=== PATIENT | female | born 1990 | race Caucasian/White ===

== ENCOUNTER → 2016-08-14 | Outpatient (REF) | payer BC ==
[~2016-08-14] MED LIST: ACET50TA PO; IBUP80TA PO
[2016-08-14 11:01] LABS: MEAN CORPUSCULAR HEMOGLOBIN 30.3 pg (27.0-33.0); MEAN CORPUSCULAR HGB CONC 34.6 g/dl (32.0-36.5); MEAN CORPUSCULAR VOLUME 87.7 fl (80.0-96.0); RED CELL DISTRIBUTION WIDTH 12.2 % (11.5-14.5); WHITE BLOOD COUNT 6.1 K/mm3 (4.0-10.0)
[2016-08-14 11:37] LABS: ALBUMIN 4.3 GM/DL (3.2-5.2); ALBUMIN/GLOBULIN RATIO 1.34 (1.00-1.93); ALKALINE PHOSPHATASE 65 U/L (45-117); ALT/SGPT 32 U/L (12-78); ANION GAP 7 MEQ/L (8-16); AST/SGOT 21 U/L (15-37); BILIRUBIN,TOTAL 0.4 MG/DL (0.2-1.0); BLOOD UREA NITROGEN 11 MG/DL (7-18); CARBON DIOXIDE LEVEL 30 MEQ/L (21-32); CHLORIDE LEVEL 105 MEQ/L (98-107); CREATININE FOR GFR 0.79 MG/DL (0.55-1.02); FERRITIN 53 NG/ML (8-252); GLOMERULAR FILTRATION RATE > 60.0 (>60); GLUCOSE, FASTING 83 MG/DL (70-105); POTASSIUM SERUM 4.4 MEQ/L (3.5-5.1); SODIUM LEVEL 142 MEQ/L (136-145); TOTAL PROTEIN 7.5 GM/DL (6.4-8.2)
== END ==
LOC: M SFHCLERA 09:30
PROVIDERS: ATTEND Family Medicine
DX: L65.9 Nonscarring hair loss, unspecified (principal); G44.209 Tension-type headache, unspecified, not intractable; E55.9 Vitamin D deficiency, unspecified

== ENCOUNTER → 2017-01-30 | Outpatient (REF) | payer BC | LOC: M LAB REF 16:39 | PROVIDERS: ATTEND Obstetrics & Gynecology | DX: N39.0 Urinary tract infection, site not specified (principal) ==

== ENCOUNTER → 2019-01-13 | Outpatient (REF) | payer BC ==
[~2019-01-13] MED LIST changes: -ACET50TA PO; +MAPA500T17 PO
[2019-01-13 18:48] LABS: BASO % 0.3 % (0.0-1.0); EOS # 0.1 10^3/uL (0.0-0.50); EOS % 1.3 % (0.0-3.0); HEMOGLOBIN 15.2 g/dl (12.0-15.5); LYMPH # 2.7 10^3/uL (1.5-6.5); LYMPH % 35.3 % (24.0-44.0); MEAN CORPUSCULAR HGB CONC 34.5 g/dl (32.0-36.5); MONO # 0.5 10^3/uL (0.0-0.8); MONO % 5.8 % (0.0-5.0); NEUTROPHILS # 4.4 10^3/uL (1.8-7.7); NEUTROPHILS % 57.2 % (36.0-66.0); PLATELET COUNT, AUTOMATED 309 10^3/uL (150-450); RED BLOOD COUNT 5.06 10^6/uL (4.00-5.40); WHITE BLOOD COUNT 7.7 10^3/uL (4.0-10.0)
[2019-01-13 18:53] LABS: ALBUMIN 4.6 GM/DL (3.2-5.2); ALT/SGPT 43 U/L (12-78); BILIRUBIN,TOTAL 0.6 MG/DL (0.2-1.0); BLOOD UREA NITROGEN 12 MG/DL (7-18); CALCIUM LEVEL 9.7 MG/DL (8.5-10.1); CARBON DIOXIDE LEVEL 28 MEQ/L (21-32); CHLORIDE LEVEL 103 MEQ/L (98-107); CHOLESTEROL LEVEL 204 MG/DL (<200); CHOLESTEROL RISK RATIO 3.187 (<5); CREATININE FOR GFR 0.89 MG/DL (0.55-1.30); GLOMERULAR FILTRATION RATE > 60.0 (>60); GLUCOSE, FASTING 75 MG/DL (70-100); HDL CHOLESTEROL 64 MG/DL (>40); LDL CHOLESTEROL 115 MG/DL (<100); NON-HDL-C 140 MG/DL; POTASSIUM SERUM 4.2 MEQ/L (3.5-5.1); SODIUM LEVEL 140 MEQ/L (136-145); TOTAL PROTEIN 8.2 GM/DL (6.4-8.2); TRIGLYCERIDES LEVEL 124 MG/DL (<150)
[2019-01-13 18:57] LABS: TOTAL 25(OH) VITAMIN D 36.1 NG/ML (30.0-100.0)
[2019-01-13 19:04] LABS: AMORPHOUS SEDIMENT LARGE (NEGATIVE); APPEARANCE, URINE TURBID (CLEAR); BACTERIA, URINE AUTO NEGATIVE (NEGATIVE); BILIRUBIN, URINE AUTO NEGATIVE (NEGATIVE); BLOOD, URINE BLOOD NEGATIVE (NEGATIVE); COLOR, URINE RED (YELLOW); GLUCOSE, URINE (UA) AUTO NEGATIVE (NEGATIVE); KETONE, URINE AUTO NEGATIVE (NEGATIVE); LEUKOCYTE ESTERASE, URINE AUTO 1+ (NEGATIVE); NITRITE, URINE AUTO NEGATIVE (NEGATIVE); PROTEIN, URINE AUTO NEGATIVE (NEGATIVE); RBC, URINE AUTO 0 /HPF (0-3); SPECIFIC GRAVITY URINE AUTO 1.018 (1.002-1.035); SQUAMOUS EPITHELIAL CELL UR AU 5 /HPF (0-6); UROBILINOGEN, URINE AUTO 0.2 mg/dL (0.0-2.0); WBC, URINE AUTO 4 /HPF (0-3)
[2019-01-13 19:35] LABS: HEMOGLOBIN A1c 5.5 %
== END ==
LOC: M LAB REF 16:48
PROVIDERS: ATTEND Nurse Practitioner Family
DX: Z13.9 Encounter for screening, unspecified (principal); L65.9 Nonscarring hair loss, unspecified

== ENCOUNTER → 2020-08-16 | Outpatient (REF) | payer BC ==
[2020-08-16 14:44] LABS: FREE T4 1.17 NG/DL (0.76-1.46); THYROID STIMULATING HORMONE 1.4 uIU/ML (0.358-3.740)
[2020-08-16 15:41] LABS: FOLLICLE STIMULATING HORMONE 9.9 mIU/mL; LUTEINIZING HORMONE 13.1 mIU/mL; PROGESTERONE 0.52 NG/ML; PROLACTIN 11.7 NG/ML
== END ==
LOC: M PLALAB 09:37
PROVIDERS: ATTEND Specialist
DX: N92.6 Irregular menstruation, unspecified (principal)

== ENCOUNTER → 2020-10-05 | Outpatient (REF) | payer BC | LOC: M PLALAB 09:03 | PROVIDERS: ATTEND Advanced Practice Midwife | DX: Z3A.00 Weeks of gestation of pregnancy not specified (principal) ==

== ENCOUNTER → 2020-10-07 | Outpatient (REF) | payer BC | LOC: M PLALAB 13:31 | PROVIDERS: ATTEND Advanced Practice Midwife | DX: Z34.91 Encounter for supervision of normal pregnancy, unspecified, first trimester (principal); Z3A.01 Less than 8 weeks gestation of pregnancy ==

== ENCOUNTER → 2020-10-20 | Outpatient (REF) | payer BC ==
[2020-10-20 14:15] LABS: HEMATOCRIT 39.1 % (36.0-47.0); MEAN CORPUSCULAR HEMOGLOBIN 29.7 pg (27.0-33.0); MEAN CORPUSCULAR HGB CONC 33.2 g/dl (32.0-36.5); MEAN CORPUSCULAR VOLUME 89.3 fl (80.0-96.0); PLATELET COUNT, AUTOMATED 272 10^3/uL (150-450); RED BLOOD COUNT 4.38 10^6/uL (4.00-5.40); WHITE BLOOD COUNT 9.7 10^3/uL (4.0-10.0)
[2020-10-20 15:16] LABS: CHLAMYDIA DNA AMPLIFICATION NEGATIVE (NEGATIVE); GC DNA AMPLIFICATION NEGATIVE (NEGATIVE)
[2020-10-20 16:31] LABS: HEPATITIS C VIRUS ABY INDEX < 0.0 INDEX (<0.8); HIV 1&2 SCREEN CENTAUR NEGATIVE (NEGATIVE)
== END ==
LOC: M PLALAB 10:09
PROVIDERS: ATTEND Obstetrics & Gynecology
DX: Z34.91 Encounter for supervision of normal pregnancy, unspecified, first trimester (principal)

== ENCOUNTER → 2020-11-09 | Outpatient (CLI) | payer BC | LOC: M PLALAB 11:01 | PROVIDERS: ATTEND Advanced Practice Midwife | DX: Z34.81 Encounter for supervision of other normal pregnancy, first trimester (principal) ==

== ENCOUNTER → 2020-12-27 | Outpatient (CLI) | payer BC ==
--- NOTE | 2020-12-27 13:50 | REP ---
INDICATION: ANATOMY. COMPARISON: None. TECHNIQUE: Transabdominal obstetric sonography. FINDINGS: Scanning through the gravid uterus demonstrates a viable single intrauterine gestation in transverse lie. motion is observed and heart rate is recorded at 155 beats per minute. A anterior placenta is seen, grade 0, without evidence of placenta previa. Closed cervical length is not measured.. No extrauterine abnormality is observed. Amniotic fluid is subjectively normal. The following anatomic structures are identified felt to be unremarkable: cranium, choroid plexus and ventricles, face and profile and orbits, diaphragm, left-sided stomach, abdominal wall cord insertion, urinary bladder, upper and lower extremities, 3 vessel cord. The following these are less than optimally seen due to position: cerebellum, nose and lips, lungs, four-chamber heart and left and right ventricular outflow tract views, spine.. Biometry chart: BPD 4.0 cm, 18 weeks 1 day Head circumference 14.7 cm, 17 weeks 6 days Abdominal circumference 12.5 cm, 18 weeks 1 day Femur length 2.6 cm, 17 weeks 5 days Humeral length 2.4 cm, 17 weeks 2 days HC AC ratio normal 1.18 Cephalic index normal 0.76 Estimated weight 217 g, 0 lb 7 oz, 67th percentile for 17 weeks 4 days IMPRESSION: Viable single intrauterine gestation at 17 weeks 6 days by today's composite sonographic criteria. JOSE GUADALUPE by today's sonography 31 May 2021. No complication identified. Expected gestational age estimate by a LMP JOSE GUADALUPE 02 June 2021 is 17 weeks 4 days. <Electronically signed by Lexa Bonilla > 12/27/20 [id number]
== END ==
LOC: M RAD 12:45
PROVIDERS: ATTEND Advanced Practice Midwife
DX: Z36.9 Encounter for antenatal screening, unspecified (principal); Z3A.17 17 weeks gestation of pregnancy

== ENCOUNTER → 2021-01-27 | Outpatient (CLI) | payer BC ==
--- NOTE | 2021-01-27 15:28 | REP ---
INDICATION: F/U ANATOMY. COMPARISON: 12/27/2020. TECHNIQUE: Real-time sonographic evaluation of the gravid uterus performed. FINDINGS: Estimated gestational age is22 weeks 0 days, EDC 06/02/2021. Today's measurements indicate appropriate growth. Presentation: Cephalic Placenta anterior, grade 1, without evidence of placenta previa. heart rate is recorded at 138 beats per minute. Amniotic fluid is subjectively normal. Closed cervical length is measured at 3.6 cm. Biometry chart: BPD: 56 mm, 23 weeks 0 days, 76th percentile. HC: 208 mm, 22 weeks 6 days, 75th percentile AC: 179 mm, 22 weeks 6 days, 67th percentile Femur length: 38 mm, 22 weeks 0 days, 50th percentile HC to AC ratio: 1.16, normal range 1.04-1.23. Estimated weight: 510g, 70th percentile. anatomy: Cranium: Grossly normal Lateral Ventricles/Choroid Plexus: Grossly normal Posterior Fossa/Cerebellum: Grossly normal Nose/lips/profile: Grossly normal Four chamber heart: Grossly normal Right ventricular outflow tract: Grossly normal Left ventricular outflow tract: Grossly normal Left-sided stomach: Grossly normal Kidneys: Grossly normal Bladder: Grossly normal Cord Insertion: Grossly normal 3 vessel cord: Grossly normal Spine: Grossly normal IMPRESSION: Viable single intrauterine gestation as above. <Electronically signed by Magnus Thompson > 01/27/21 [id number]
== END ==
LOC: M WHC 13:43
PROVIDERS: ATTEND Specialist
DX: Z34.82 Encounter for supervision of other normal pregnancy, second trimester (principal); Z3A.22 22 weeks gestation of pregnancy

== ENCOUNTER → 2021-01-31 | Outpatient (REF) | payer BC | LOC: M PLALAB 11:42 | PROVIDERS: ATTEND Obstetrics & Gynecology | DX: Z36.89 Encounter for other specified antenatal screening (principal); Z3A.22 22 weeks gestation of pregnancy ==

== ENCOUNTER → 2021-03-02 | Outpatient (CLI) | payer BC ==
[2021-03-02 14:12] LABS: HEMATOCRIT 34.9 % (36.0-47.0); HEMOGLOBIN 11.8 g/dl (12.0-15.5); MEAN CORPUSCULAR HEMOGLOBIN 30.9 pg (27.0-33.0); MEAN CORPUSCULAR HGB CONC 33.8 g/dl (32.0-36.5); MEAN CORPUSCULAR VOLUME 91.4 fl (80.0-96.0); PLATELET COUNT, AUTOMATED 259 10^3/uL (150-450); RED BLOOD COUNT 3.82 10^6/uL (4.00-5.40); WHITE BLOOD COUNT 9.7 10^3/uL (4.0-10.0)
== END ==
LOC: M PLALAB 09:38
PROVIDERS: ATTEND Obstetrics & Gynecology
DX: Z36.89 Encounter for other specified antenatal screening (principal); Z3A.22 22 weeks gestation of pregnancy

== ENCOUNTER → 2021-03-20 | Outpatient (CLI) | payer BC | LOC: M LABSMTC 09:25 | PROVIDERS: ATTEND Family Medicine | DX: Z20.822 Contact with and (suspected) exposure to COVID-19 (principal) | CPT/HCPCS: C9803; U0003 ==

== ENCOUNTER 2021-04-02 00:43 | Emergency (ER) | payer BC ==
[~2021-04-02] VITALS: Ht 157.5 cm; Wt 77.1 kg
[2021-04-02 02:37] LABS: BASO % 0.5 % (0.0-1.0); HEMATOCRIT 31.7 % (36.0-47.0); HEMOGLOBIN 11.2 g/dl (12.0-15.5); LYMPH # 0.7 10^3/uL (1.5-5.0); LYMPH % 11.2 % (24.0-44.0); MEAN CORPUSCULAR HEMOGLOBIN 30.8 pg (27.0-33.0); MEAN CORPUSCULAR HGB CONC 35.3 g/dl (32.0-36.5); MEAN CORPUSCULAR VOLUME 87.1 fl (80.0-96.0); MONO # 0.4 10^3/uL (0.0-0.8); MONO % 6.5 % (2.0-8.0); NEUTROPHILS % 79.6 % (36.0-66.0); PLATELET COUNT, AUTOMATED 209 10^3/uL (150-450); RED BLOOD COUNT 3.64 10^6/uL (4.00-5.40); WHITE BLOOD COUNT 6.3 10^3/uL (4.0-10.0)
[2021-04-02 03:11] LABS: BLOOD UREA NITROGEN 5 MG/DL (7-18); CALCIUM LEVEL 8.5 MG/DL (8.5-10.1); CARBON DIOXIDE LEVEL 26 MEQ/L (21-32); CHLORIDE LEVEL 105 MEQ/L (98-107); CK-MB VALUE MASS < 1.0 NG/ML (<3.6); CPK CREATINE PHOSPHOKINASE 37 U/L (26-192); GLOMERULAR FILTRATION RATE > 60.0 (>60); GLUCOSE, FASTING 127 MG/DL (70-100); POTASSIUM SERUM 4.1 MEQ/L (3.5-5.1); SODIUM LEVEL 137 MEQ/L (136-145); TROPONIN I < 0.02 NG/ML (< 0.10)
[2021-04-02] MEDS ORDERED: ACETAMINOPHEN 500 MG TAB PO ONE (04:20)
--- NOTE | 2021-04-02 08:14 | REPVR ---
PROCEDURE INFORMATION: Exam: XR Chest Exam date and time: 04/02/2021 7:14 AM Age: 30 years old Clinical indication: Other: Chest pain and tightness TECHNIQUE: Imaging protocol: XR of the chest. Views: 2 views. COMPARISON: No relevant prior studies available. FINDINGS: Lungs: Mild interstitial prominence without significant airspace disease. Pleural spaces: No pleural effusion. Heart/Mediastinum: No cardiomegaly. Bones/joints: Unremarkable. IMPRESSION: No acute airspace or pleural disease. Electronically signed by: Scott Bunch On 04/02/2021 08:14:25 AM
[2021-04-02 08:15] VITALS: BP 113/60
[2021-04-02] MEDS ORDERED: PRENTAB9 PO (09:04)
--- NOTE | 2021-04-03 05:50 | ECGEPIP ---
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
== END 2021-04-02 08:34 | disposition admitted as inpatient to this hospital (09) ==
LOC: M ED 00:43
DX: O99.413 Diseases of the circulatory system complicating pregnancy, third trimester (principal); R06.02 Shortness of breath; R07.89 Other chest pain; Z3A.29 29 weeks gestation of pregnancy; Z91.040 Latex allergy status; Z79.899 Other long term (current) drug therapy

== ENCOUNTER 2021-04-02 08:40 | Outpatient (CLI) | payer BC ==
[~2021-04-02] VITALS: Ht 157.5 cm; Wt 76.1 kg
[2021-04-02 08:58] VITALS: BP 120/65
[2021-04-02] MEDS ORDERED: PRENTAB9 PO (09:04)
[2021-04-02] MEDS ORDERED: HOME MED LIST COMPLETE! XX SCH (09:10)
[2021-04-02 09:32] VITALS: BP 121/74
--- NOTE | 2021-04-02 10:06 | IPNPDOC ---
Text Note Date of Service The patient was seen on 04/02/21. NOTE Patient called the answering service over night w/ complaints of CP/SOB stating that she felt like somebody was sitting on her chest. She was having significant sternal pain which was exacerbated by movement. She denies any URI symptoms and denies fevers/chills. She has no history of asthma or panic attacks. She was seen in the ER and worked up for cardiac/pulmonary/infectious etiologies. Patient received tylenol in the ER which helped relieve her symptoms though she still feels tightness in her sternum. She no longer feels short of breath and is resting comfortably in triage. Once cleared by the ER, she was sent to L&D for NST prior to discharge from the hospital. She denies ctx/lof/vb. Reports +FM FHT 120 mod +Accel no Decel Reactive NST w/ 10x10 accels appropriate for this gestational age Vitals: See below A/P 30yo at 31w2d EGA who presented to the ER with chest pain and fausto rtness of breath. 1. ER evaluation of chest pain - VS wnl, Normal SpO2 sats - EKG normal sinus rhythm - CXR normal - cleared by the ER 2. - reassuring NST - reviewed PTL precautions - EHSAN Fang MD Apr 02, 2021 10:06
== END 2021-04-02 09:47 | disposition home or self-care (01) ==
LOC: M LDO 08:40
PROVIDERS: ATTEND Obstetrics & Gynecology
DX: O26.893 Other specified pregnancy related conditions, third trimester (principal); Z3A.31 31 weeks gestation of pregnancy; R06.02 Shortness of breath; R07.89 Other chest pain; Z91.040 Latex allergy status
CPT/HCPCS: 59025; G0378; G0463

== ENCOUNTER 2021-05-08 13:04 | Outpatient (CLI) | payer BC ==
[~2021-05-08] VITALS: Ht 157.5 cm; Wt 78.8 kg
[~2021-05-08 13:04] MED LIST changes: +PRENTAB9 PO
[2021-05-08 13:14] VITALS: BP 119/76
[2021-05-08] MEDS ORDERED: HOME MED LIST COMPLETE! XX SCH (13:15)
--- NOTE | 2021-05-08 15:08 | IPNPDOC ---
Text Note Date of Service The patient was seen on 05/08/21. NOTE S: Beryl is a 31 y.o. at 36.3 with an JOSE GUADALUPE of 06/02/2021 who presents to labor and delivery triage with + COVID-19, cough, and leaking of fluid when coughing. She and her entire family tested positive for COVID-19 last week. She is not taking any OTC medications to relieve her cough. She notes good movement. Reports occasional contractions when she was at home earlier but denies them currently. She denies vaginal bleeding. Medical: anxiety, tension headaches, vitamin D Deficiency Surgical: D & C Family: heart disease Social: neg for tobacco use, neg for etoh, illicit drug use O: VS: see below General: alert and oriented x 3 Respiratory: non-productive cough noted. No wheezing, crackles or rales noted on exam. RLL with diminished breath sounds. Cardiac: normal rate and rhythm, no murmur noted. Abdomen: soft and NTTP Pelvic: SSE reveals cervix that is closed, negative for fluid in the vagina, negative for fluid at os after valsalva. Negative for nitrazine test. Limited bedside ultrasound reveals LINO of 15.78, cephalic presentation. A: IUP at 36.3 weeks, +COVID-19 and non-productive cough P: GBS collected. Scripts sent for tesselon pearls and Mucinex to help with symptoms. Script sent for pulse ox and instructed to check it twice per day and if she is having any SOB or difficulty breathing. She is to call if she has consistent SpO2 less than or equal to 95%. Discussed monoclonal antibiodies if desired. Patient declined. Pt will have telemed visit with ANGEL Muhammad tomorrow 05/09/21 at 09:45 am with E clinic. ED consulted (kaden Montejo is a PA) on normal plan of care for Covid positive patients. Discharged to home with precautions. Reviewed access to care, kick count, and term labor signs, worsening Covid symptoms, and danger signs to report. VS,Fishbone, I+O VS, Fishbone, I+O Vital Signs Date Time Temp Pulse Resp B/P (MAP) Pulse Ox O2 Delivery O2 Flow Rate FiO2 05/08/21 13:14 98.4 133 18 119/76 (90) 97 Room Air DENA ALSTON CNM May 08, 2021 15:07
[2021-05-08] MEDS ORDERED: BENZ-18 PO (15:33)
[2021-05-08] MEDS ORDERED: MUCI600T31 PO (15:33)
[2021-05-08] MEDS ORDERED: BENZONATATE 100MG CAPSULE PO SCH (16:00)
[2021-05-08] MEDS ORDERED: guaiFENesin ER 600 MG TAB PO ONE (16:00)
== END 2021-05-08 16:20 | disposition home or self-care (01) ==
LOC: M LDO 13:04
PROVIDERS: ATTEND Advanced Practice Midwife
DX: O98.513 Other viral diseases complicating pregnancy, third trimester (principal); U07.1 COVID-19; O26.893 Other specified pregnancy related conditions, third trimester; Z3A.36 36 weeks gestation of pregnancy
CPT/HCPCS: 59025; 76815; 87081; G0378; G0463

== ENCOUNTER 2021-05-24 03:25 | Inpatient (IN) | payer BC ==
[2021-05-24] VITALS (9 sets, daily range): BP systolic 109–143; BP diastolic 65–88
[~2021-05-24] VITALS: Ht 157.5 cm; Wt 78.1 kg
[~2021-05-24 03:25] MED LIST changes: +BENZ-18 PO; +MUCI600T31 PO
[2021-05-24] MEDS ORDERED: ACET325C5 PO (04:35)
[2021-05-24] MEDS ORDERED: HOME MED LIST COMPLETE! XX SCH (04:40)
[2021-05-24 04:41] LABS: HEMATOCRIT 34.7 % (36.0-47.0); HEMOGLOBIN 11.9 g/dl (12.0-15.5); MEAN CORPUSCULAR HEMOGLOBIN 29.1 pg (27.0-33.0); MEAN CORPUSCULAR HGB CONC 34.3 g/dl (32.0-36.5); MEAN CORPUSCULAR VOLUME 84.8 fl (80.0-96.0); PLATELET COUNT, AUTOMATED 277 10^3/uL (150-450); RED BLOOD COUNT 4.09 10^6/uL (4.00-5.40); WHITE BLOOD COUNT 11.3 10^3/uL (4.0-10.0)
[2021-05-24] MEDS ORDERED: OXYTOCIN 30 UNITS IN 0.9% NaCl 500ML IV BAG (J2590) As Ordered ONE (05:56)
[2021-05-24] MEDS ORDERED: CARBOPROST TROMETHAMINE 250 MCG/ML AMP IM PRN (06:30)
[2021-05-24] MEDS ORDERED: OXYTOCIN DRIP 30 UNITS in IV 1 EA IV PRN (06:30)
[2021-05-24] MEDS ORDERED: TRANEXAMIC ACID INJection 1,000 MG in NS 100 ML IV PRN (06:30)
[2021-05-24] MEDS ORDERED: LIDOCAINE 1% MDV 20ML VIAL INFIL PRN (06:30)
[2021-05-24] MEDS ORDERED: LR 1,000 ML IV SCH ×2 (06:30→07:00)
[2021-05-24] MEDS ORDERED: METHYLERGONOVINE MALEATE 0.2 MG/ML VIAL (J2210) IM PRN (06:30)
[2021-05-24] MEDS ORDERED: DIBUCAINE 1% OINTMENT 30GM TOP PRN (07:00)
[2021-05-24] MEDS ORDERED: OXYTOCIN DRIP 30 UNITS in IV 1 EA IV SCH (07:00)
[2021-05-24] MEDS ORDERED: IBUPROFEN 600MG TAB PO PRN (07:00)
[2021-05-24] MEDS ORDERED: DOCUSATE SODIUM 100MG CAPSULE PO PRN (07:00)
[2021-05-24] MEDS ORDERED: MEASLES,MUMPS,RUBELLA VACCINE INJ (MMR-II) (90707) SC SCH (07:00)
[2021-05-24] MEDS ORDERED: IBUPROFEN 800 MG TAB PO PRN (07:00)
[2021-05-24] MEDS ORDERED: RHOGAM 300 MCG (1500 IU) INJ (J2790) IM SCH (07:00)
[2021-05-24] MEDS ORDERED: METHYLERGONOVINE MALEATE 0.2 MG TAB PO PRN (07:00)
[2021-05-24] MEDS ORDERED: ACETAMINOPHEN 500 MG TAB PO PRN (07:00)
[2021-05-24] MEDS ORDERED: ONDANSETRON 4MG/2ML VIAL IV PRN (07:00)
[2021-05-24] MEDS ORDERED: ACETAMINOPHEN TAB 650MG DOSE (2X325MG) PO PRN (07:00)
--- NOTE | 2021-05-24 07:24 | HPEPDOC ---
Obstetrical History & Physical General Date of Admission May 24, 2021 at 03:57 History of Present Illness 31-year-old G5, P2022 at 38+5 weeks gestation. Presents with frequent, painful uterine contractions over the past several hours. Denies any loss of fluid or vaginal bleeding. Reports regular movement. ROS: no MELENDEZ, cp, sob, fever/chills/nausea/vomiting. course: COVID + 05/01/21 No other complications. PMH: Chronic MELENDEZ's, anxiety, heart palpitations SH: D&C Meds: vitamin All: NKDA; latex DIRECTOR OF HOUSING: No STI or dysplasia OB: G1, D&C. G2, SAB. G3, Term , uncomplicated. G4, Term , uncomplicated . Sochx: No tobacco, alcohol or drug use FamHx: heart disease labs: Blood type B+, antibody screen negative, HepBsAg neg, HIV neg, rubella immune, Hep C antibody negative, RPR nonreactive, CT/GC neg, urine culture negative, 1 hour glucose challenge test 130, GBS negative imaging: no anomalies or placental abnormalities Past Medical History Allergies Coded Allergies: SEASONAL ALLERGIES (Verified Allergy, Intermediate, 04/02/21) stuffy nose,congestion,sore throat latex (Verified Allergy, Intermediate, 04/02/21) hives Medications Scheduled No.137/Iron/Folic Acd ( Vitamin Tablet) 1 Each Tablet, 1 TAB PO DAILY Miscellaneous Medications Acetaminophen (Tylenol) 325 Mg Capsule, 650 MG PO Physical Examination Physical Examination GENERAL: Alert and oriented times three. ABDOMEN: Gravid and non-tender to touch. FETUS: Is vertex (VTX) HEART RATE: Regular rate and rhythm. LUNGS: Clear to auscultation (CTA). EXTREMITIES: No edema. No clonus. SVE: 7cm/100%/0, bulging membranes, bloody show EFM: Cat I [place]: ctxs every 3-5 min Laboratory Data 24H LABS Laboratory Tests 2 05/24/21 04:00: Serology Scanned Report Hepatitis B Testing 05/24/21 04:28: Nucleated Red Blood Cells % (auto) 0.0 CBC/BMP Laboratory Tests 05/24/21 04:28 Assessment/Plan Assessment 31yo at 38+5 weeks EGA. Active labor. Reassuring maternal and status. Plan Admit and orient. Paediatric Physiotherapist and consent. Labs and intravenous (IV) per unit protocol. Anticipate . SHRUTHI HYDE DO May 24, 2021 07:23
--- NOTE | 2021-05-24 07:33 | DNPDOC ---
[facility] Delivery Note Delivery Note DATE OF DELIVERY: 05/24/21 TIME OF DELIVERY: 0634 Spontaneous vaginal delivery. CERTIFIED REGISTERED NURSE ANESTHETIST: Dr. Kade Clemente DO FACOG ANESTHESIA: 1% Lidocaine local, during repair LACERATION: Second degree ESTIMATED BLOOD LOSS: 200 mL. FINDINGS: 7 pound 3 ounce (3260g) female , Score 9 and 9. DELIVERY SUMMARY: The active phase and second stage of labor progressed in normal fashion. The head delivered in the JOSÉ position, and restituted LOT. No nuchal cord was noted. The anterior shoulder delivered with gentle downward guidance and the remainder of the body delivered with ease. The baby was placed on the patient's chest. Delayed cord clamping occurred for approximately 1 minute. The cord was then doubly clamped and cut. IV Pitocin was bolused to actively manage the third stage of labor. The placenta delivered intact without any difficulty within 10 minutes of delivery. The uterine fundus was noted to be firm and 2 cm below the umbilicus. The cervix, vagina, vulva and perineum were inspected. A second-degree laceration was noted and immediately repaired with 3-0 Vicryl in typical fashion, under local anesthesia. Excellent hemostasis was noted. Sponge, needle and instrument counts were correct per protocol. DO ANGIE Alvarez JONATHAN R. DO May 24, 2021 07:33
[2021-05-24] MEDS: PRENATAL VITAMINS CHEWABLE TABLET PO SCH (09:00)
[2021-05-25 06:00] VITALS: BP 126/77
[2021-05-25] MEDS: PRENATAL VITAMINS CHEWABLE TABLET PO SCH (08:59)
[2021-05-25] MEDS ORDERED: IBUP80TA PO (10:55)
== END 2021-05-25 12:15 | disposition home or self-care (01) | DRG 560 ==
LOC: M LDO 03:25 → M LDI 03:57 → M OBS 08:51
PROVIDERS: ADMIT Obstetrics & Gynecology; ATTEND Obstetrics & Gynecology
PROC: 10E0XZZ Delivery of Products of Conception, External Approach (ICD-10-PCS; principal; 2021-05-24)
PROC: 0KQM0ZZ Repair Perineum Muscle, Open Approach (ICD-10-PCS; 2021-05-24)
DX: O70.1 Second degree perineal laceration during delivery (principal); Z3A.38 38 weeks gestation of pregnancy; Z37.0 Single live birth

== ENCOUNTER → 2023-09-02 | Outpatient (CLI) | payer BC, MEDICAID ==
[~2023-09-02] MED LIST changes: +ACET325C5 PO
[2023-09-02 15:57] LABS: BASO % 0.4 % (0.0-1.0); EOS # 0.1 10^3/uL (0.0-0.5); EOS % 1.8 % (0.0-3.0); HEMATOCRIT 41.2 % (36.0-47.0); HEMOGLOBIN 13.7 g/dl (12.0-15.5); LYMPH # 2.8 10^3/uL (1.5-5.0); LYMPH % 36.9 % (24.0-44.0); MEAN CORPUSCULAR HEMOGLOBIN 28.8 pg (27.0-33.0); MEAN CORPUSCULAR HGB CONC 33.3 g/dl (32.0-36.5); MEAN CORPUSCULAR VOLUME 86.6 fl (80.0-96.0); MONO # 0.4 10^3/uL (0.0-0.8); MONO % 5.6 % (2.0-8.0); NEUTROPHILS # 4.2 10^3/uL (1.5-8.5); NEUTROPHILS % 54.9 % (36.0-66.0); PLATELET COUNT, AUTOMATED 283 10^3/uL (150-450); RED BLOOD COUNT 4.76 10^6/uL (4.00-5.40); WHITE BLOOD COUNT 7.6 10^3/uL (4.0-10.0)
[2023-09-02 16:35] LABS: FERRITIN 40.9 NG/ML (7.3-270.7); FREE T4 1.13 NG/DL (0.89-1.76); THYROID STIMULATING HORMONE 1.533 uIU/ML (0.55-4.78)
[2023-09-02 16:36] LABS: PROLACTIN 5.12 NG/ML
[2023-09-02 16:37] LABS: ALBUMIN 4.1 G/DL (3.2-5.2); ALKALINE PHOSPHATASE 74 U/L (46-116); ALT/SGPT 44 U/L (7.0-40); AST/SGOT 28 U/L (<34); BILIRUBIN,TOTAL 0.6 MG/DL (0.3-1.2); BLOOD UREA NITROGEN 13 MG/DL (9-23); CALCIUM LEVEL 9.7 MG/DL (8.5-10.1); CARBON DIOXIDE LEVEL 28 MMOL/L (20-31); CHLORIDE LEVEL 107 MMOL/L (98-107); CREATININE FOR GFR 0.79 MG/DL (0.55-1.30); GLOMERULAR FILTRATION RATE > 60.0 (>60); GLUCOSE, FASTING 92 MG/DL (60-100); IRON (FE) 100 UG/DL (50-170); PERCENT SATURATION 29.6 % (13.2-45.0); POTASSIUM SERUM 4.2 MMOL/L (3.5-5.1); SODIUM LEVEL 137 MMOL/L (136-145); TOTAL IRON BINDING CAPACITY 338 UG/DL (250-425); TOTAL PROTEIN 7.4 G/DL (5.7-8.2)
[2023-09-02 17:01] LABS: HEMOGLOBIN A1c 5.3 % (4.0-6.0)
== END ==
LOC: M PLALAB 12:40
PROVIDERS: ATTEND Nurse Practitioner Family
DX: Z12.4 Encounter for screening for malignant neoplasm of cervix (principal); N92.1 Excessive and frequent menstruation with irregular cycle; B37.31 Acute candidiasis of vulva and vagina
CPT/HCPCS: 36415; 80053; 82627; 82728; 83036; 83498; 83550; 84146; 84402; 84403; 84439; 84443; 85025; 85246; 87624; G0123

== ENCOUNTER → 2023-09-05 | Outpatient (CLI) | payer BC, MEDICAID | LOC: M RAD 10:39 | PROVIDERS: ATTEND Nurse Practitioner Family | DX: N92.1 Excessive and frequent menstruation with irregular cycle (principal) ==

== ENCOUNTER → 2023-09-24 | Outpatient (CLI) | payer BC, MEDICAID ==
[~2023-09-24] MED LIST changes: +PROHANCE 279.3MG/ML 15ML VIAL ONE
== END ==
LOC: M PLAIMG 09:05
PROVIDERS: ATTEND Nurse Practitioner Family
DX: N92.1 Excessive and frequent menstruation with irregular cycle (principal)

== ENCOUNTER → 2023-11-08 | Outpatient (REF) | payer BC, MEDICAID ==
[~2023-11-08] MED LIST changes: -PROHANCE 279.3MG/ML 15ML VIAL ONE
[2023-11-08 17:59] LABS: HEMOGLOBIN A1c 4.9 % (4.0-6.0)
[2023-11-08 18:20] LABS: ALBUMIN 4.1 G/DL (3.2-5.2); ALKALINE PHOSPHATASE 68 U/L (46-116); ALT/SGPT 34 U/L (7.0-40); AST/SGOT 23 U/L (<34); BILIRUBIN,TOTAL 0.6 MG/DL (0.3-1.2); BLOOD UREA NITROGEN 12 MG/DL (9-23); CALCIUM LEVEL 9.2 MG/DL (8.5-10.1); CARBON DIOXIDE LEVEL 29 MMOL/L (20-31); CHLORIDE LEVEL 104 MMOL/L (98-107); CHOLESTEROL LEVEL 194 MG/DL (<200); CHOLESTEROL RISK RATIO 3.92 (<5); CREATININE FOR GFR 0.85 MG/DL (0.55-1.30); GLOMERULAR FILTRATION RATE > 60.0 (>60); GLUCOSE, FASTING 87 MG/DL (60-100); HDL CHOLESTEROL 49.4 MG/DL (>40); LDL CHOLESTEROL 115.8 MG/DL (<100); NON-HDL-C 144.6 MG/DL; POTASSIUM SERUM 4.3 MMOL/L (3.5-5.1); SODIUM LEVEL 140 MMOL/L (136-145); TOTAL PROTEIN 7.3 G/DL (5.7-8.2); TRIGLYCERIDES LEVEL 144 MG/DL (<150)
[2023-11-08 18:21] LABS: THYROID STIMULATING HORMONE 1.309 uIU/ML (0.55-4.78); TOTAL 25(OH) VITAMIN D 36.2 NG/ML (20.0-100.0)
== END ==
LOC: M LAB REF 17:02
PROVIDERS: ATTEND Physician Assistant
DX: E66.9 Obesity, unspecified (principal); E55.9 Vitamin D deficiency, unspecified

== ENCOUNTER → 2025-02-17 | Outpatient (CLI) | payer BC, MEDICAID, OTHER, SELFPAY ==
[2025-02-17 12:22] LABS: BASO # 0.0 10^3/uL (0.0-0.2); BASO % 0.4 % (0.0-1.0); EOS # 0.2 10^3/uL (0.0-0.5); EOS % 2.4 % (0.0-3.0); LYMPH # 3.3 10^3/uL (1.5-5.0); LYMPH % 38.6 % (24.0-44.0); MONO # 0.5 10^3/uL (0.0-0.8); MONO % 5.3 % (2.0-8.0); NEUTROPHILS # 4.5 10^3/uL (1.5-8.5); NEUTROPHILS % 52.9 % (36.0-66.0); PLATELET COUNT, AUTOMATED 302 10^3/uL (150-450)
[2025-02-17 12:30] LABS: ERYTHROCYTE SEDIMENTATION RATE 14 mm/hr (0-20)
[2025-02-17 12:54] LABS: C REACTIVE PROTEIN QUANTITATIV 0.75 MG/DL (<1.0)
== END ==
LOC: M WUC 10:31
PROVIDERS: ATTEND Nurse Practitioner Family
DX: M25.531 Pain in right wrist (principal); L03.113 Cellulitis of right upper limb